=== PATIENT | female | born 1940 | race Caucasian/White ===

== ENCOUNTER 2017-04-12 10:40 | Emergency (ER) | payer MEDICARE ==
[2017-04-12 10:54] VITALS: BP 135/60
--- NOTE | 2017-04-12 11:17 | ED ---
Influenza-Like Illness - HPI Summary HPI Summary: 76F presents with fever for past two days. She admits to body aches. She admits to nausea but denies any vomiting. She has been taking tyenlol. She denies any diarrhea or abdominal pain. no cough or sore throat. no headache. no dysuria. no chest pain or SOB. no other symptoms. sent here from PCP for flu swap. gave Tylenol at pcp. - History of Current Complaint Chief Complaint: UCGeneralIllness Time Seen by Provider: 04/12/17 11:10 - Allergy/Home Medications Allergies/Adverse Reactions: Allergies Allergy/AdvReac Type Severity Reaction Status Date / Time Sulfa (Sulfonamide Allergy Rash Verified 04/12/17 10:51 Antibiotics) PMH/Surg Hx/FS Hx/Imm Hx Endocrine/Hematology History: Denies: Hx Diabetes Cardiovascular History: Denies: Hx Hypertension, Hx Pacemaker/ICD, Other Cardiovascular Problems/ Disorders Respiratory History: Denies: Other Respiratory Problems/Disorders GI History: Denies: Other GI Disorders History: Denies: Hx Renal Disease Musculoskeletal History: Denies: Hx Osteoporosis, Other Musculoskeletal History Sensory History: Reports: Hx Contacts or Glasses - GLASSES Denies: Hx Hearing Aid Opthamlomology History: Reports: Hx Contacts or Glasses - GLASSES Neurological History: Denies: Other Neuro Impairments/Disorders Psychiatric History: Reports: Hx Depression - MILD Denies: Hx Panic Disorder - Cancer History Hx Chemotherapy: No Hx Radiation Therapy: No - Surgical History Surgery Procedure, Year, and Place: HERNIA Lt ELBOW -FX LUMPECTOMY - BENIGN AGE 24 Hx Anesthesia Reactions: No Infectious Disease History: No Infectious Disease History: Denies: Traveled Outside the [place] in Last 30 Days - Family History Known Family History: Positive: Hypertension - Social History Alcohol Use: Rare Alcohol Amount: 1-2 PER WEEK Substance Use Type: Reports: None Smoking Status (MU): Former Smoker Have You Smoked in the Last Year: No Review of Systems Positive: Fever, Fatigue Negative: Chest Pain Negative: Shortness Of Breath All Other Systems Reviewed And Are Negative: Yes Physical Exam Triage Information Reviewed: Yes Vital Signs On Initial Exam: Initial Vitals Temp Pulse Resp BP Pulse Ox 96.1 F 78 18 135/60 99 04/12/17 10:52 04/12/17 10:52 04/12/17 10:52 04/12/17 10:52 04/12/17 10:52 Vital Signs Reviewed: Yes Appearance: Positive: Well-Appearing Skin: Positive: Warm, Dry Head/Face: Positive: Normal Head/Face Inspection Eyes: Positive: Normal, EOMI, [place], Conjunctiva Clear ENT: Positive: Normal ENT inspection, Pharynx normal, TMs normal Respiratory/Lung Sounds: Positive: Clear to Auscultation, Breath Sounds Present Cardiovascular: Positive: Normal, RRR Abdomen Description: Positive: Nontender, Soft Bowel Sounds: Positive: Present Musculoskeletal: Positive: Normal Neurological: Positive: Normal Psychiatric: Positive: Normal Diagnostics - Vital Signs Vital Signs Temp Pulse Resp BP Pulse Ox 04/12/17 10:52 96.1 F 78 18 135/60 99 - Laboratory Lab Statement: Any lab studies that have been ordered have been reviewed, and results considered in the medical decision making process. - Radiology chest Xray Interpretation: Positive (See Comments) - infilitrate Radiology Interpretation Completed By: Radiologist Flu Symptom Course/Dx - Course Course Of Treatment: 76F presents with fever for past two days. She admits to body aches. She admits to nausea but denies any vomiting. She has been taking tyenlol. She denies any diarrhea or abdominal pain. no cough or sore throat. no headache. no dysuria. no chest pain or SOB. no other symptoms. sent here from PCP for flu swap. gave Tylenol at pcp. on exam lungs CTA. pharnyx normal. flu neg. discussed case with [employer] and wants chest xray. urine neg at pcp. chest xray shows inflitrate. will treat for early pneumonia with zpack. will have continue tyenlol and follow up with pcp. will have follow up with primary about blood pressure as is elevated at this visit. mediations reviewed. patient understand and agrees with plan. - Diagnoses Differential Diagnosis/HQI/PQRI: Positive: Influenza, Pneumonia, Upper Respiratory Infection Provider Diagnoses: Febrile illness, Pneumonia Discharge - Discharge Plan Condition: Good Disposition: HOME Prescriptions: Azithromycin TAB* [Zithromax TAB (Z-NORTH) 250 mg #6 tabs] 2 tab PO .TODAY, THEN 1 DAILY #1 north Patient Education Materials: Pneumonia (ED) Referrals: Toñito Mercado MD [Primary Care Provider] - Additional Instructions: Take azithromycin two pills today, one pill for next 4 days Take Tylenol every 6 hours for fever Follow up with primary within 7 days Return to ED if develop any new or worsening symptoms
--- NOTE | 2017-04-12 11:50 | RAD ---
INDICATION: Fever. COMPARISON: Comparison is made with prior chest x-ray study from October 21, 2009. TECHNIQUE: Dual-energy PA and lateral views of the chest were obtained. FINDINGS: The heart is within normal limits in size. Mediastinal and hilar contours appear within normal limits. There is a small area of increased density which projects over the left anterior sixth rib above the lung base which appears dense likely related to the rib possibly an old fracture. There is a focal infiltrate present posteriorly in the costophrenic angle likely in the right lower lobe most consistent with pneumonia. No pleural effusion is seen. IMPRESSION: RIGHT LOWER LOBE INFILTRATE MOST CONSISTENT WITH PNEUMONIA RECOMMEND FOLLOW-UP CHEST X-RAYS TO RESOLUTION.
== END 2017-04-12 12:14 | disposition home or self-care (01) ==
LOC: UCEAST 10:40
DX: J18.9 Pneumonia, unspecified organism (principal); R50.9 Fever, unspecified; M79.1 Myalgia; R11.0 Nausea; Z88.2 Allergy status to sulfonamides; Z87.891 Personal history of nicotine dependence
CPT/HCPCS: 71046; 87502; 99212; G0463